=== PATIENT | female | born 1960 | race Hispanic/Latino ===

== ENCOUNTER → 2019-11-01 09:17 | Outpatient (CLI) | payer OTHER, SELFPAY ==
[2019-11-02 08:58] LABS: COVID19 Sendout Not Detected (Not Detect)
== END ==
PROVIDERS: PCP Internal Medicine; Visit Provider Physician Assistant
DX: Z01.812 Encounter for preprocedural laboratory examination (principal)
CPT/HCPCS: 87635

== ENCOUNTER 2019-11-04 13:02 | Day surgery (SDC) | payer OTHER, SELFPAY ==
--- NOTE | 2019-11-04 11:56 | PM.HP.1 ---
History of Present Illness History of Present Illness Date Patient Seen: 11/04/19 Time Patient Seen: 14:45 Chief complaint: [id number] Narrative: 58 Years Old Female comes in today for consideration of a screening colonoscopy. One previous screenign colonsocpy at age 48, reportedly normal. There have been no lower GI symptoms suggesting disease such as change in bowel habits, bleeding, abdominal pain or anemia. There's been no family history of colon cancer or colon polyps. Overall health issues have been stable, including no major cardiac events for at least 6 weeks. Current Medications (verified): 1) Sertraline Hcl 50 Mg Oral Tablet (Sertraline Hcl) .... Take 1 tablet by mouth once a day for anxiety or depression 2) Ketoconazole 2 % External Cream (Ketoconazole) .... Apply once daily to feet. 3) Metformin Hcl 500 Mg Oral Tablet (Metformin Hcl) .... Take one tablet at dinner 4) Microlet Lancets (Lancets) .... Use one lancet as needed to check hemaglobin levels. E11.9 5) Atorvastatin Calcium 10 Mg Oral Tablet (Atorvastatin Calcium) .... Take 1 tablet by mouth daily for cholesterol control. 6) Glyburide 1.25 Mg Oral Tablet (Glyburide) .... Take one tablet twice daily before breakfast and dinner for diabetes. 7) Natalie Contour Test in Vitro Strip (Glucose Blood) .... Test 3 times a week 8) Losartan Potassium 50 Mg Oral Tablet (Losartan Potassium) .... Take 1 tablet by mouth once a day, for blood pressure control. 9) Levothyroxine Sodium 50 Mcg Oral Tablet (Levothyroxine Sodium) .... Take 1 tablet by mouth once a day for thyroid replacement. 10) Ranitidine Hcl 150 Mg Oral Tablet (Ranitidine Hcl) .... Take one tablet twice a day for stomach acid suppression. 11) Fexofenadine Hcl 180 Mg Oral Tablet (Fexofenadine Hcl) .... Take one by mouth every day for allergies. 12) Fluticasone Propionate 50 Mcg/act Nasal Suspension (Fluticasone Propionate) .... One spray each nostril daily, for allergy symptoms 13) Ketoconazole 2 % External Cream (Ketoconazole) .... Apply once daily to affected skin 14) B-12 1000 Mcg Oral Capsule (Cyanocobalamin) .... Take one by mouth every day Allergies (verified): 1) Penicillin (Moderate) Past History Reviewed: Past medical, surgical, family and social histories (including risk factors) reviewed and attested, and no changes required Past Medical History: Pregnancies: 1 Live : 1 Miscarriages: 0 Living Children: 1 Pneumonia Bursitis of shoulder, left GERD Depression/anxiety FATIGUE HYPERTENSION Diabetes, Type 2 HYPOTHYROIDISM HYPERLIPIDEMIA Nail dystrophy TINEA PED[facility] Past Surgical History: Colonoscopy, age 48, normal Family History: Father: Spencer Bean (1939) - living, colon polyps Mother: Violeta Bean (1939) age 68 MMI Siblings: Pushpa Valle (1959) - Pre-Diabetes, Hannah Greenr (1960) - Pre-Diabetes, Radha Sean (1962) - Diabetes, CKD Social History: Reviewed history from 05/16/2018 and no changes required: Marital Status: - Aidan Barnhart (12/24/1950) - Retired Children: Marin Ye (1985) 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 Household Members: 2 Education: finished in 1976 Patient History Family & Social History Family History (Updated 11/12/14 @ 00:00 by Conversion Provider) Father Age: 79 Diabetes mellitus Mother CAD (coronary artery disease) Diabetes mellitus Sister Age: 56 Diabetes mellitus Sister Age: 58 Overweight Meds Home Medications and Allergies Home Medications Medication Instructions Recorded Confirmed Type [allergy meds ] #0 12/02/15 History triamcinolone acetonide 0 gm TOPICAL BID #60 gm 08/09/16 Rx Lancets ea QDAY #100 01/18/17 Rx Glucose: Test Strips 0 str BID #100 str 02/22/17 Rx losartan 50 mg PO QDAY #45 tab 06/07/17 11/04/19 Rx oseltamivir [Tamiflu] 75 mg PO BID #10 cap 06/07/17 11/04/19 Rx glyburide 1.25 mg PO BID #180 tab 05/01/18 Rx levothyroxine 50 mcg tablet 50 mcg PO QAM #90 tab 07/03/18 11/04/19 Rx ranitidine HCl 150 mg capsule 150 mg PO BID #180 cap 07/03/18 11/04/19 Rx fluticasone propionate 50 2 spray INTRANASAL QDAY #16 gram 10/09/18 11/04/19 Rx mcg/actuation nasal spray,suspension metformin 500 mg PO BID 11/04/19 11/04/19 History nystatin [Nystop] 0 applic TOPICAL BID 11/04/19 11/04/19 History sertraline 25 mg PO DAILY 11/04/19 11/04/19 History Allergies Allergy/AdvReac Type Severity Reaction Status Date / Time Penicillins [PENICILLINS] Allergy Mild HIVES Verified 11/04/19 13:39 Review of Systems Review of Systems ROS: Yes All systems reviewed with the patient and are negative except as otherwise documented Exam Narrative Exam Narrative: General: Alert and oriented, appearing stated age and in no acute distress. Head: Head normocephalic/atraumatic. Neck: Neck soft and supple, no lymphadenopathy. Lungs: Clear to auscultation bilaterally, no wheezes, rhonchi or rales. Heart: normal rate and regular rhythm, no murmurs, rubs, gallops, or clicks, Abdomen: abdomen soft and non-tender without masses, organomegaly, or abdominal wall hernias, bowel sounds positive. Skin: intact without suspicious lesions or rashes, Psych: alert and cooperative; normal mood and affect; normal attention span and concentration; cognition, remote and recent memory appear to be intact, Assessment & Plan Assessment & Plan narrative: Problem # 1: COLON CANCER SCREENING 1. Colonoscopy The nature and character of the procedure as well as anticipated results were discussed. The possibility of not completing the procedure was also discussed. Possible complications including aspiration pneumonia, bleeding, perforation and reaction to medications either for sedation or preparation and missed lesions were discussed. Questions were answered and proceeding to the colonoscopy was elected. Informed consent signed. I sincerely appreciate the referral allowing me to participate in this patient's care. Please contact me with any questions or concerns. COVID-19 COVID-19 status: Negative Result date/Date tested (Pos, Neg/Pending): 11/01/19
--- NOTE | 2019-11-04 11:58 | PM.OP.ENDO ---
Operative Date/Time/Diagnoses Date of procedure: 11/04/19 Time of procedure: 14:58 Pre-op diagnosis: 1. Screening for colon cancer Post-op diagnosis: other (1. Normal colonoscopy, 2. Sigmoid diverticulosis, moderate) Procedure & Clinicians Study performed: Colonoscopy Same procedure as scheduled: Yes Indications: 1. Screening for colon cancer Surgeon: Maggie You Procedure Notes SCOAP/Timeout: 14:54 Procedure in detail: ENDOSCOPIST: Maggie You MD Sedation RN: Tomy Bass RN Sedation start time: 14:58 Sedation end time: 15:13 PROCEDURE: Colonoscopy INDICATIONS: 1. Screening for colon cancer MEDICATION: Levsin 0.125 mg sublingual, incremental doses of Versed and fentanyl until appropriate level sedation achieved. ASA CLASS: 2 CECAL WITHDRAWAL TIME: 10 minutes COMPLICATIONS: None. EXTENT OF PROCEDURE: Cecum. QUALITY OF PREP: Good with portions of liquid stool. PROCEDURE: Prior to insertion of the colonoscope, a digital rectal examination was accomplished with circumferential palpation of the distal rectal mucosa without significant findings being noted. The high-definition colonoscope was passed into the rectum in the usual fashion and advanced over to the cecum without difficulty. The ileocecal valve, appendiceal stoma, and medial wall all could be inspected and no abnormalities were seen. ASCENDING COLON: As the colonoscope was withdrawn, care was taken to expose and inspect the haustral folds and no abnormalities were seen. HEPATIC FLEXURE: Normal no polyps, diverticula or other abnormalities. TRANSVERSE COLON: Normal no polyps, diverticula or other abnormalities. DESCENDING COLON: Minor diverticulosis, otherwise, normal, no polyps, or other abnormalities. SIGMOID COLON: Moderate diverticulosis, otherwise, normal, no polyps, or other abnormalities. RECTUM: Normal. J maneuver was produced. There was no significant perianal disease. The J maneuver was broken. The remainder of the rectum was inspected and there was [] no external hemorrhoid disease. The scope was withdrawn. IMPRESSION: 1. Left-sided diverticulosis, moderate 2. Normal colonoscopy PLAN: 1. Repeat colonoscopy in 10 years The possibility of a missed lesion including a malignancy has been discussed with the patient previously. Potential alarm symptoms have been discussed and should be reported immediately. Specimen(s): none sent Complications: none Post-procedure Recommendations: Colonscopy in 10 years Follow up: as needed Disposition: PACU
[2019-11-04] MEDS: HYOSCYAMINE 0.125 MG TABLET PO (13:25)
[2019-11-04 13:26] VITALS: BP 156/92; PULSE 98; RESP 18; TEMP 36.9; O2SAT 96; BMI 34.8
[2019-11-04] MEDS: LACTATED RINGERS 1,000 ML 200 ML IV (13:38)
[2019-11-04] MEDS: MIDAZOLAM 5 MG/5 ML VIAL IV (14:40)
[2019-11-04] MEDS: fentaNYL 250 MCG/5 ML INJ IV (14:41)
[2019-11-04 15:18] VITALS: BP 129/74; PULSE 74; RESP 13; TEMP 36.6; O2SAT 95
[2019-11-04 15:23] VITALS: BP 116/69; PULSE 93; RESP 13; O2SAT 95
[2019-11-04 15:28] VITALS: BP 127/71; PULSE 71; RESP 12; O2SAT 96
[2019-11-04 15:38] VITALS: BP 123/70; PULSE 64; RESP 16; TEMP 36.7; O2SAT 96
[2019-11-04 15:52] VITALS: BP 121/77; PULSE 72; RESP 16; TEMP 36.6; O2SAT 96
== END 2019-11-04 15:55 | disposition home or self-care (01) ==
PROVIDERS: PCP Internal Medicine; Referring Provider Student in an Organized Health Care Education/Training Program; Visit Provider Student in an Organized Health Care Education/Training Program
PROC: 0DJD8ZZ Inspection of Lower Intestinal Tract, Via Natural or Artificial Opening Endoscopic (ICD-10-PCS; CPT 45378; principal; 2019-11-04 14:00)
DX: Z12.11 Encounter for screening for malignant neoplasm of colon (principal); K57.30 Diverticulosis of large intestine without perforation or abscess without bleeding
CPT/HCPCS: G0121; J2250; J3010

== ENCOUNTER → 2020-03-30 16:37 | Outpatient (ROUT) | payer OTHER, SELFPAY ==
[2020-03-30 17:32] LABS: Influenza A - CEPHEID Flu A NEGATIVE (NEGATIVE); Influenza B - CEPHEID Flu B NEGATIVE (NEGATIVE)
== END ==
PROVIDERS: PCP Internal Medicine; Visit Provider Internal Medicine
DX: R05 Cough (principal)
CPT/HCPCS: 87502

== ENCOUNTER → 2020-05-09 14:53 | Outpatient (CLI) | payer OTHER, SELFPAY ==
--- NOTE | 2020-05-09 14:55 | DI.MG.S_ITS ---
BILATERAL DIGITAL SCREENING MAMMOGRAM 3D/2D WITH CAD: 05/09/2020 CLINICAL: Routine screening. Comparison is made to exams dated: 08/09/2017 mammogram, 12/11/2014 mammogram, and 11/12/2013 mammogram - [facility]. The tissue of both breasts is heterogeneously dense. This may lower the sensitivity of mammography. Current study was also evaluated with a Computer Aided Detection (CAD) system. No significant masses, calcifications, or other findings are seen in either breast. There has been no significant interval change. IMPRESSION: NEGATIVE There is no mammographic evidence of malignancy. A 1 year screening mammogram is recommended. This exam was interpreted at Station ID: [id number]. NOTE: For mammograms, a report in lay terms will be sent to the patient. Approximately 15% of breast malignancies will not be visualized mammographically. In the management of a palpable breast mass, a negative mammogram must not discourage biopsy of a clinically suspicious lesion. Electronically Signed By: Fidel ruby/kendrick:05/11/2020 08:37:20 letter sent: Normal Exam ACR BI-RADS Category 1: Negative 3341F
== END ==
PROVIDERS: PCP Internal Medicine; Referring Provider Internal Medicine; Visit Provider Internal Medicine
DX: Z12.31 Encounter for screening mammogram for malignant neoplasm of breast (principal)
CPT/HCPCS: 77063; 77067

== ENCOUNTER → 2020-07-01 09:08 | Outpatient (CLI) | payer OTHER, SELFPAY ==
[2020-07-01] MEDS: COVID-19 VACC, Ad26(JANSSEN)/PF 0.5 ML IM (09:19)
== END ==
PROVIDERS: PCP Internal Medicine; Visit Provider Internal Medicine
DX: Z23 Encounter for immunization (principal)
CPT/HCPCS: 0031A; 91303

== ENCOUNTER → 2021-03-03 10:11 | Outpatient (CLI) | payer OTHER, SELFPAY ==
--- NOTE | 2021-03-03 | DI.RAD.S_ITS ---
PROCEDURE: XR CHEST 2V INDICATIONS: CHRONIC COUGH TECHNIQUE: 2 views of the chest were acquired. COMPARISON: [facility], , CHEST 2 VIEW, 01/05/2017, 9:33. FINDINGS: Surgical changes and devices: None. Lungs and pleura: There is mild patchy bilateral perihilar and left basilar airspace opacity. No pleural effusions or pneumothorax. Mediastinum: Mediastinal contours are normal. Heart size is normal. Bones and chest wall: No suspicious bony abnormalities. Soft tissues appear unremarkable. IMPRESSION: Mild atypical pneumonia. Dictated by: Chito Chen M.D. on 03/03/2021 at 11:23 Approved by: Chito Chen M.D. on 03/03/2021 at 11:23
== END ==
PROVIDERS: PCP Internal Medicine; Referring Provider Internal Medicine; Visit Provider Internal Medicine
DX: J18.9 Pneumonia, unspecified organism (principal); R05.3 Chronic cough
CPT/HCPCS: 71046

== ENCOUNTER → 2021-05-01 16:03 | Outpatient (CLI) | payer OTHER, SELFPAY ==
[2021-05-01 17:13] LABS: COVID19 -Nasal RAPID Negative (Negative)
== END ==
PROVIDERS: PCP Internal Medicine; Visit Provider Nurse Practitioner Family
DX: J02.9 Acute pharyngitis, unspecified (principal); Z20.822 Contact with and (suspected) exposure to COVID-19
CPT/HCPCS: 87635

== ENCOUNTER → 2022-03-31 09:56 | Outpatient (CLI) | payer OTHER, SELFPAY ==
--- NOTE | 2022-03-31 | DI.MG.S_ITS ---
BILATERAL DIGITAL SCREENING MAMMOGRAM 3D/2D WITH CAD: 03/31/2022 CLINICAL: Routine screening. Comparison is made to exams dated: 05/09/2020 mammogram, 08/09/2017 mammogram, 11/12/2013 mammogram, and 12/11/2014 mammogram - [facility]. Both breasts are heterogeneously dense, which may obscure small masses (category c / 51-75% glandular tissue). Current study was also evaluated with a Computer Aided Detection (CAD) system. No significant masses, calcifications, or other findings are seen in either breast. There has been no significant interval change. IMPRESSION: NEGATIVE There is no mammographic evidence of malignancy. A 1 year screening mammogram is recommended. Based on the Tyrer Cuzick model (a risk assessment model) the patient's lifetime risk is 10.7% and her 10 year risk is 4.8%. According to the ACR, ACS, and NCCN guidelines, an annual breast MRI exam along with mammogram is recommended if the patient's lifetime risk is 20% or greater. This exam was interpreted at Station ID: [id number]. NOTE: For mammograms, a report in lay terms will be sent to the patient. Approximately 15% of breast malignancies will not be visualized mammographically. In the management of a palpable breast mass, a negative mammogram must not discourage biopsy of a clinically suspicious lesion. Electronically Signed By: Ian chavarria/kendrick:03/31/2022 11:00:34 letter sent: Normal Exam ACR BI-RADS Category 1: Negative 3341F
== END ==
PROVIDERS: PCP Internal Medicine; Referring Provider Internal Medicine; Visit Provider Internal Medicine
DX: Z12.31 Encounter for screening mammogram for malignant neoplasm of breast (principal)
CPT/HCPCS: 77063; 77067

== ENCOUNTER → 2023-08-01 10:41 | Outpatient (CLI) | payer MEDICARE, SELFPAY ==
--- NOTE | 2023-08-01 10:46 | DI.RAD.S_ITS ---
Bone Density Report Name: SHANON DOWLING Age: 63 Sex: Female Ethnicity: Date of : 1960 Indication: postmenopausal; screening for osteoporosis; Referring Provider: CHRIST BA Study: Bone densitometry was performed. Exam Date: August 01, 2023 Accession number: [id number] Bone Density: Region BMD T-score Z-score Classification AP Spine(L1-L4) 1.205 1.4 3.2 Normal Femoral Neck (Left) 0.860 0.1 1.3 Normal Total Hip (Left) 1.035 0.8 1.7 Normal Femoral Neck (Right) 0.885 0.3 1.5 Normal Total Hip (Right) 1.058 1.0 1.8 Normal Total Hip Mean 1.047 0.9 1.8 Normal World Health Organization criteria for BMD impression classify patients as: Normal (T-score at or above -1.0), Osteopenia (T-score between -1.0 and -2.5), or Osteoporosis (T-score at or below -2.5). 10-year Fracture Risk: FRAX not reported because: All T-scores for Spine Total, Hip Total, Femoral Neck at or above -1.0 Impression: The patient has normal bone mass. Discussion: BONE DENSITY IS ABOVE THE MINIMUM DESIRABLE LEVEL AT ALL SKELETAL SITES TESTED. This patient's bone mineral density is above the minimum desirable level (T-score -1.0 or better) at all sites measured. The patient should follow a healthful lifestyle (good nutrition with adequate calcium and vitamin D, and appropriate weight-bearing exercise). Follow-Up: Consider repeating this study in 5 years or sooner if there is some new clinical indication. Reported by: MARSHAL MAN MD on 08/01/2023 11:03:00 AM.
--- NOTE | 2023-08-01 10:46 | DI.MG.S_ITS ---
BILATERAL DIGITAL SCREENING MAMMOGRAM 3D/2D WITH CAD: 08/01/2023 CLINICAL: Routine screening. Comparison is made to exams dated: 03/31/2022 mammogram, 05/09/2020 mammogram, and 08/09/2017 mammogram - [facility]. Both breasts are heterogeneously dense, which may obscure small masses (category c / 51-75% glandular tissue). Current study was also evaluated with a Computer Aided Detection (CAD) system. No significant masses, calcifications, or other findings are seen in either breast. There has been no significant interval change. IMPRESSION: NEGATIVE There is no mammographic evidence of malignancy. A 1 year screening mammogram is recommended. Based on the Tyrer Cuzick model (a risk assessment model) the patient's lifetime risk is 9.9% and her 10 year risk is 4.8%. According to the ACR, ACS, and NCCN guidelines, an annual breast MRI exam along with mammogram is recommended if the patient's lifetime risk is 20% or greater. This exam was interpreted at Station ID: [id number]. NOTE: For mammograms, a report in lay terms will be sent to the patient. Approximately 15% of breast malignancies will not be visualized mammographically. In the management of a palpable breast mass, a negative mammogram must not discourage biopsy of a clinically suspicious lesion. Electronically Signed By: Poonam rivas/kendrick:08/01/2023 17:49:40 letter sent: Normal Exam ACR BI-RADS Category 1: Negative 3341F
== END ==
LOC: RAD 10:43
PROVIDERS: PCP Internal Medicine; Referring Provider Internal Medicine; Visit Provider Internal Medicine
DX: R92.333 Mammographic heterogeneous density, bilateral breasts (principal); Z12.31 Encounter for screening mammogram for malignant neoplasm of breast; Z13.820 Encounter for screening for osteoporosis; Z78.0 Asymptomatic menopausal state
CPT/HCPCS: 77063; 77067; 77080

== ENCOUNTER → 2024-03-04 16:44 | Outpatient (ROUT) | payer MEDICARE, SELFPAY ==
[2024-03-04 17:27] LABS: Influenza A - CEPHEID Flu A NEGATIVE (NEGATIVE); Influenza B - CEPHEID Flu B NEGATIVE (NEGATIVE); Respiratory Syncytial Virus Negative (Negative)
[2024-03-04 17:28] LABS: COVID-19 CEPHEID 4-PLEX PCR Negative (Negative)
== END ==
PROVIDERS: PCP Internal Medicine; Visit Provider Internal Medicine
DX: R05.9 Cough, unspecified (principal); R06.02 Shortness of breath
CPT/HCPCS: 0241U

== ENCOUNTER → 2024-05-24 09:55 | Outpatient (CLI) | payer MEDICARE, SELFPAY ==
--- NOTE | 2024-05-24 09:57 | DI.RAD.S_ITS ---
PROCEDURE: XR CHEST 2V INDICATIONS: Chronic cough TECHNIQUE: 2 views of the chest were acquired. COMPARISON: [facility], SHARLA, XR CHEST 2V, 03/03/2021, 10:15. [facility], SHARLA, CHEST 2 VIEW, 01/05/2017, 9:33. FINDINGS: Surgical changes and devices: None. Lungs and pleura: Lungs are clear. No pleural effusions or pneumothorax. Mediastinum: Mediastinal contours are normal. Heart size is normal. Bones and chest wall: No suspicious bony abnormalities. Soft tissues appear unremarkable. IMPRESSION: No acute cardiopulmonary abnormality is seen. Dictated by: Clayton Coelho M.D. on 05/24/2024 at 15:05 Approved by: Clayton Coelho M.D. on 05/24/2024 at 15:06
== END ==
PROVIDERS: PCP Registered Nurse; Referring Provider Registered Nurse; Visit Provider Registered Nurse
DX: R05.3 Chronic cough (principal)
CPT/HCPCS: 71046

== ENCOUNTER → 2024-09-09 15:20 | Outpatient (CLI) | payer MEDICARE, SELFPAY ==
--- NOTE | 2024-09-09 15:21 | DI.MG.S_ITS ---
MM screening mammo BI: 09/09/2024. BI-RADS: 1 CLINICAL: 64-year old female for bilateral screening mammogram. Tyrer-Cuzick lifetime risk of 9.0%. No personal or first-degree family history of breast cancer. PRIOR EXAMS 08/01/2023, 03/31/2022, 05/09/2020, 08/09/2017, 12/17/2014, 12/11/2014. MAMMOGRAPHY TECHNIQUE: 2D and 3D (tomosynthesis) digital mammographic views obtained, with additional images as needed for full coverage. Current study was also evaluated with a Computer Aided Detection (CAD) system. DENSITY C. The breasts are heterogeneously dense, which may obscure small masses. MAMMOGRAPHY FINDINGS Bilateral: No suspicious mass, asymmetry, microcalcification, or other abnormality seen. IMPRESSION: * No evidence of malignancy. RECOMMENDATIONS Bilateral * Annual screening mammography. OVERALL ASSESSMENT CATEGORY BI-RADS-1: Negative. The [employer] recommends annual screening mammography beginning at age 40 for women with average risk of breast cancer. ELECTRONICALLY SIGNED: Leslie Yao M.D. on 09/10/2024 at 01:12:11 AM PT Interpreting Station ID: [id number]
== END ==
PROVIDERS: PCP Registered Nurse; Referring Provider Registered Nurse; Visit Provider Registered Nurse
DX: Z12.31 Encounter for screening mammogram for malignant neoplasm of breast (principal); R92.333 Mammographic heterogeneous density, bilateral breasts
CPT/HCPCS: 77063; 77067